=== PATIENT | male | born 1960 | race Caucasian/White ===

== ENCOUNTER 2020-11-20 15:07 | Emergency (ER) | payer BC ==
[~2020-11-20] VITALS: Ht 182.9 cm; Wt 81.6 kg
--- NOTE | 2020-11-20 15:10 | NUR ---
Dr Lawler at the bedside for MSE.
[2020-11-20] MEDS ORDERED: MORPHINE SULFATE 4 MG/1 ML DISP.SYRIN IM ONE (15:15)
[2020-11-20] MEDS ORDERED: ONDANSETRON ODT 4 MG TAB.RAPDIS SL ONE (15:15)
[2020-11-20] MEDS ORDERED: IV NORMAL SALINE 1000 ML BAG IV ONE (15:15)
[2020-11-20] MEDS ORDERED: MORPHINE SULFATE 4 MG/1 ML DISP.SYRIN ONE (15:21)
[2020-11-20] MEDS ORDERED: ONDANSETRON ODT 4 MG TAB.RAPDIS ONE (15:21)
[2020-11-20] MEDS ORDERED: ONDANSETRON 4 MG/2 ML VIAL ONE (15:21)
[2020-11-20] MEDS ORDERED: LORAZEPAM 2 MG/1 ML VIAL IV ONE (15:30)
[2020-11-20] MEDS ORDERED: KETOROLAC TROMETHAMINE 30 MG INJ IVP ONE (15:30)
[2020-11-20] MEDS ORDERED: FAMOTIDINE. 20 MG/2 ML VIAL IV ONE ×2 (15:30→15:35)
[2020-11-20] MEDS ORDERED: KETAMINE HCL 500 MG/10 ML INJ IV ONE (15:30)
--- NOTE | 2020-11-20 15:30 | NUR ---
PT refused CT w/ contrast, Dr Lawler made aware.
[2020-11-20 15:36] LABS: CREATININE 1.1 mg/dL (0.6-1.3); HEMOGLOBIN 15.9 g/dL (12.5-16.3); POTASSIUM 3.4 mmol/L (3.5-5.1)
[2020-11-20 15:42] LABS: BILIRUBIN,DIRECT 0.1 mg/dL (0.0-0.2); BILIRUBIN,TOTAL 0.6 mg/dL (0.2-1.0); TOTAL PROTEIN, SERUM 7.9 g/dL (6.4-8.2)
--- NOTE | 2020-11-20 15:45 | NUR ---
Pt out of ER for CT.
[2020-11-20 15:48] LABS: BASOPHILS # (AUTO) 0.1 K/uL (0.0-8.0); BASOPHILS % (AUTO) 0.8 % (0.0-2.0); EOSINOPHILS # (AUTO) 0.1 K/uL (0.0-0.7); EOSINOPHILS % (AUTO) 0.5 % (0.0-7.0); HEMATOCRIT 46.8 % (36.7-47.1); LYMPHOCYTES # (AUTO) 2.7 K/uL (20.0-40.0); LYMPHOCYTES % (AUTO) 19.8 % (20.5-51.5); MEAN CORPUSCULAR HEMOGLOBIN 30.7 uug (23.8-33.4); MEAN CORPUSCULAR HGB CONC 34 g/dL (32.5-36.3); MEAN CORPUSCULAR VOLUME 90.4 fL (73.0-96.2); MONOCYTES # (AUTO) 0.9 K/uL (2.0-10.0); NEUTROPHILS # (AUTO) 9.8 K/uL (1.8-8.9); NEUTROPHILS % (AUTO) 71.9 % (38.5-71.5); PLATELET COUNT (AUTO) 321 K/uL (152-348); RED BLOOD CELL COUNT(AUTO) 5.17 MIL/uL (4.06-5.63); WHITE BLOOD COUNT (AUTO) 13.6 K/uL (3.6-10.2)
--- NOTE | 2020-11-20 16:00 | NUR ---
pt back from ct, says feels better, denies pain/nausea at this time.
--- NOTE | 2020-11-20 16:20 | NUR ---
hospital lunch tray provided for pt per request. pt eating with good apetite.
[2020-11-20] MEDS ORDERED: IV NS 1000 ML 1,000 ML IV ONE (16:30)
--- NOTE | 2020-11-20 17:01 | NUR ---
Patient discharged to home in stable condition. Written and verbal after care instructions given. Patient verbalizes understanding of instructions. Stressed follow up or return to ER for worsening s/s.pt walks in steady gait. pt here to take the pt home.
[2020-11-20 17:02] VITALS: BP 129/71
== END 2020-11-20 17:03 | disposition home or self-care (01) ==
LOC: ER 15:07
DX: R10.13 Epigastric pain (principal); I44.7 Left bundle-branch block, unspecified; G56.91 Unspecified mononeuropathy of right upper limb; E87.6 Hypokalemia; D72.829 Elevated white blood cell count, unspecified; E87.2 Acidosis; K59.00 Constipation, unspecified
CPT/HCPCS: 36415; 74176; 80048; 80076; 83605; 83690; 84484; 85025; 93005; 96361; 96374; 96375; 99285; J1885; J2270; J3490; 70030-TC; A4663; J2405; J7030; J7040; Q0162